=== PATIENT | female | born 1980 | race Caucasian/White ===

== ENCOUNTER 2019-04-01 15:18 | Emergency (ER) | payer OTHER, MEDICAID ==
[2019-04-01] MEDS: MECLIZINE 12.5 MG TAB PO (16:48)
[2019-04-01] MEDS: LORAZEPAM 0.5 MG TAB PO (16:49)
[2019-04-01] MEDS: ONDANSETRON (ODT) 4 MG TAB ODT (16:49)
[2019-04-01 16:50] LABS: URINE PH (Dip) POC 7.5 (5.0-8.5)
[2019-04-01 16:50] LABS: URINE BLOOD (Dip) POC 2+ (NEGATIVE); URINE GLUCOSE (Dip) POC Negative (NEGATIVE); URINE KETONES (Dip) POC 1+ (NEGATIVE); URINE LEUKOCYTE EST (Dip) POC Negative (NEGATIVE); URINE NITRITE (Dip) POC Negative (NEGATIVE); URINE TOTAL PROTEIN POC 1+ (NEGATIVE)
[2019-04-01 16:51] LABS: ADD MAN DIFF? NO
[2019-04-01 16:54] LABS: WHITE BLOOD COUNT 11.2 10^3/ul (4.8-10.8)
[2019-04-01 16:54] LABS: BASOPHIL # 0.1 10^3/ul (0.0-0.1); BASOPHILS % 0.7 % (0.0-2.0); EOSINOPHILS % 0.2 % (0.0-7.0); HEMOGLOBIN 14.8 g/dl (12.0-16.0); LYMPHOCYTES # 1.1 10^3/ul (0.8-2.9); LYMPHOCYTES % 9.5 % (15.0-51.0); MEAN CORPUSCULAR HEMOGLOBIN 28.9 pg (29.0-33.0); MEAN CORPUSCULAR HGB CONC 33.6 g/dl (32.0-37.0); MEAN CORPUSCULAR VOLUME 85.9 fl (82.0-101.0); MEAN PLATELET VOLUME 10.5 fl (7.4-10.4); MONOCYTE # 0.6 10^3/ul (0.3-0.9); MONOCYTES % 5.7 % (0.0-11.0); NEUTROPHIL # 9.3 10^3/ul (1.6-7.5); NEUTROPHILS % 83.4 % (39.0-77.0); PLATELET COUNT 231 10^3/UL (140-415); RED BLOOD COUNT 5.12 10^6/ul (4.20-5.40); RED CELL DISTRIBUTION WIDTH 12.1 % (11.5-14.5)
[2019-04-01 17:19] LABS: ANION GAP 12 (5-13); BLOOD UREA NITROGEN 19 mg/dl (7-20); CALCIUM 9.5 mg/dl (8.4-10.2); CARBON DIOXIDE 26 mmol/L (21-31); CHLORIDE 102 mmol/L (97-110); CREATININE 0.71 mg/dl (0.44-1.00); Estimated GFR > 60 mL/min (>60); GLUCOSE 131 mg/dl (70-220); POTASSIUM 3.7 mmol/L (3.5-5.1); SODIUM 140 mmol/L (135-144)
== END 2019-04-01 18:02 | disposition home or self-care (01) ==
LOC: FTE 15:18
DX: R42 Dizziness and giddiness (principal); R11.2 Nausea with vomiting, unspecified
CPT/HCPCS: 80048; 81003; 81025; 85025; 99283